=== PATIENT | female | born 1965 | race Caucasian/White ===

== ENCOUNTER → 2018-04-20 11:10 | Outpatient (CLI) | payer MEDICAID | END | disposition home or self-care (01) | LOC: D.CT 11:10 | DX: K86.3 Pseudocyst of pancreas (principal) ==

== ENCOUNTER 2019-06-15 09:37 | Emergency (ER) | payer SELFPAY ==
[~2019-06-15] VITALS: Ht 154.9 cm; Wt 52.7 kg
[2019-06-15 09:38] VITALS: Ht 154.9 cm; Wt 52.7 kg
[2019-06-15 10:14] LABS: HEMATOCRIT 35.7 % (36.0-48.0); HEMOGLOBIN 11.9 g/dL (12-16); LYMPHOCYTES 21.6 % (15-50); MCH 28.7 pg (26.0-34.0); MCHC 33.3 g/dL (31.0-37.0); MCV 86.2 fL (80.0-100.0); MEAN PLATELET VOLUME 10.5 fL (7.4-10.4); NEUTROPHILS 71.9 % (40-80); RBC 4.14 10x6/uL (4.00-5.40); WBC 4.5 10x3/uL (4.8-10.8)
[2019-06-15] MEDS ORDERED: CELEXA20 MG PO (10:17)
[2019-06-15] MEDS ORDERED: BACLOFEN10 MG PO (10:18)
[2019-06-15] MEDS ORDERED: PERCOCET 10-321 EAC1 PO (10:19)
[2019-06-15] MEDS ORDERED: ESTRACE2 MG PO (10:19)
[2019-06-15] MEDS ORDERED: AMBIEN10 MG PO (10:20)
[2019-06-15] MEDS ORDERED: LYRICA150 MG PO (10:20)
[2019-06-15] MEDS ORDERED: CREON DR 6,0001 EACH PO (10:20)
[2019-06-15 10:34] LABS: ALBUMIN 3.1 g/dL (3.4-5.0); ALKALINE PHOSPHATASE 75 U/L (46-116); ALT (SGPT) 21 U/L (10-68); BILIRUBIN - TOTAL 0.41 mg/dL (0.2-1.3); CALC OSMOLALITY 274 mosm/kg (275-300); CALCIUM 8.4 mg/dL (8.5-10.1); CARBON DIOXIDE 31.9 mmol/L (21.0-32.0); CHLORIDE - SERUM 102 mmol/L (98-107); CREATININE - SERUM 0.7 mg/dL (0.6-1.3); GLUCOSE 107 mg/dL (74-106); POTASSIUM - SERUM 3.8 mmol/L (3.5-5.1); PROTEIN - SERUM 6.7 g/dL (6.4-8.2); SODIUM 138 mmol/L (136-145); UREA NITROGEN 11 mg/dL (7-18); eGFR NON AFRICAN AMERICAN > 90 mL/min (90-120)
[2019-06-15 10:35] LABS: APPEARANCE HAZY (CLEAR); BILIRUBIN NEGATIVE (NEGATIVE); COLOR YELLOW (YELLOW); GLUCOSE NEGATIVE (NEGATIVE); KETONE NEGATIVE (NEGATIVE); NITRITE NEGATIVE (NEGATIVE); PROTEIN NEGATIVE (NEGATIVE); RED CELLS - URINE 0-5 /hpf (0-5); SPECIFIC GRAVITY 1.015 (1.005-1.020); WHITE CELLS - URINE RARE /hpf (0-5)
[2019-06-15 10:36] LABS: AMORPHOUS SEDIMENT <1+ /lpf (NONE SEEN); BACTERIA FEW /hpf (NONE SEEN); HYALINE CAST RARE /lpf (NONE SEEN); MUCUS >1+ /lpf (NONE SEEN)
[2019-06-15 10:37] LABS: AMYLASE - SERUM 17 U/L (25-115); LIPASE 92 U/L (73-393)
[2019-06-15 10:39] LABS: TROPONIN-I < 0.017 ng/mL (0.000-0.060)
[2019-06-15 10:40] LABS: PLATELET COUNT 142 10x3/uL (130-400)
[2019-06-15 10:40] LABS: UDS - AMPHET NEGATIVE QUAL (NEGATIVE); UDS - BARB NEGATIVE QUAL (NEGATIVE); UDS - BENZO NEGATIVE QUAL (NEGATIVE); UDS - COCAINE NEGATIVE QUAL (NEGATIVE); UDS - OPIATE POSITIVE QUAL (NEGATIVE); UDS - PCP NEGATIVE QUAL (NEGATIVE); UDS - THC NEGATIVE QUAL (NEGATIVE)
--- NOTE | 2019-06-15 11:17 | NUR ---
PT ASSESSED AT A LOW RISK AND RESOURCES WERE GIVEN AND REVIEWED. PT DENIES SUICIDAL IDEATION BUT DOES ADMIT TO TAKING TOO MANY OF HER AMBIEN AT TIMES. DISCUSSED COPING SKILLS AND HOW TO DEAL WITH HER DEPRESSION AND ANXIETY. NURSE AND ATTENDING AWARE OF RESULTS.
[2019-06-15 16:07] VITALS: BP 134/69
[2019-06-17 13:10] LABS: EHRLICHIA CHAFF IGG Negative (Neg:<1:64); EHRLICHIA CHAFF IGM Negative (Neg:<1:20); HGE IGG TITER Negative (Neg:<1:64); HGE IGM TITER Negative (Neg:<1:20)
[2019-06-20 17:08] LABS: RMSF IGM 0.84 index (0.00-0.89)
== END 2019-06-15 15:23 | disposition home or self-care (01) ==
LOC: D.ER 09:37
PROVIDERS: Emergency Medicine
DX: R10.9 Unspecified abdominal pain (principal); F13.10 Sedative, hypnotic or anxiolytic abuse, uncomplicated; F32.9 Major depressive disorder, single episode, unspecified; F41.9 Anxiety disorder, unspecified